=== PATIENT | male | born 1970 | race Caucasian/White ===

== ENCOUNTER 2019-05-31 09:50 | Emergency (ER) | payer BC ==
[~2019-05-31] VITALS: Ht 175.2 cm; Wt 95.3 kg
[~2019-05-31 09:50] MED LIST: MEDROL DOSEPAK4 MG PO; NICODERM C21 MG/24 H TD; PROAIR HFA0.09 MG/AC INH; QVAR40 MCG INH; ZITHROMAX Z PA250 MG PO
[2019-05-31] MEDS ORDERED: IBUPROFEN600 MG PO (10:17)
[2019-05-31] MEDS ORDERED: AUGMENTIN 875875 MG PO (10:17)
[2019-05-31] MEDS ORDERED: NORCO 5-325 TA1 EACH PO (10:23)
== END 2019-05-31 10:27 | disposition home or self-care (01) ==
LOC: ED 09:50
DX: S81.852A Open bite, left lower leg, initial encounter (principal); F17.200 Nicotine dependence, unspecified, uncomplicated; Z79.899 Other long term (current) drug therapy; X58.XXXA Exposure to other specified factors, initial encounter; Y93.89 Activity, other specified; Y92.89 Other specified places as the place of occurrence of the external cause; Y99.8 Other external cause status

== ENCOUNTER → 2022-08-04 | Outpatient (CLI) | payer BC ==
[~2022-08-04] MED LIST changes: +AUGMENTIN 875875 MG PO; +IBUPROFEN600 MG PO; +NORCO 5-325 TA1 EACH PO
[2022-08-04 17:00] LABS: BUN 16 mg/dl (9-23); CHLORIDE 106 mmol/L (98-107); CHOLESTEROL 170 mg/dL (<200); LDL CHOLESTEROL 92 mg/dL (9-159); POTASSIUM 3.9 mmol/L (3.4-5.1); TRIGLYCERIDES 78 mg/dl (<150)
== END | disposition home or self-care (01) ==
LOC: LAB 15:57
PROVIDERS: ATTEND Internal Medicine
DX: Z00.00 Encounter for general adult medical examination without abnormal findings (principal)

== ENCOUNTER 2022-09-11 10:07 | Emergency (ER) | payer BC ==
[~2022-09-11] VITALS: Ht 175.2 cm; Wt 97.5 kg
[2022-09-11] MEDS ORDERED: HYDROCODONE-AC1 EACH PO (12:14)
[2022-09-11] MEDS ORDERED: NAPROSYN500 MG PO (12:14)
== END 2022-09-11 12:19 | disposition home or self-care (01) ==
LOC: ED 10:07
DX: M54.42 Lumbago with sciatica, left side (principal); Z79.899 Other long term (current) drug therapy; Z79.2 Long term (current) use of antibiotics; Z98.890 Other specified postprocedural states